=== PATIENT | female | born 1965 | race Caucasian/White ===

== ENCOUNTER 2017-08-13 06:53 | Outpatient (CLI) | payer BC ==
--- NOTE | 2017-08-13 13:37 | BD ---
DEXA BONE DENSITY STUDY: HISTORY: Postmenopausal. COMPARISON: None. FINDINGS: Lumbar Spine: BMD (g/cm2) L1 0.804 T-Score: -1.7 L2 0.826 T-Score: -1.8 L3 0.810 T-Score: -2.5 L4 1.110 T-Score: +0.5 L1-L4 0.899 T-Score: -1.3 Femoral Neck: 0.646 T-Score: -1.8 Total Femur: 0.738 T-Score: -1.7 Impression: 1. Osteopenia of the lumbar spine and left femoral neck. 2. Ten-year fracture risk of major osteoporotic fracture is 4.9% and of hip fracture 0.6%. These fr acture probabilities were calculated for an untreated patient. POS: JODY
--- NOTE | 2017-08-13 13:40 | MMO ---
SCREENING MAMMOGRAPHY: DATE: 08/13/17. COMPARISON: 07/02/16, 05/23/15, and 05/12/14. HISTORY: Screening mammography. FINDINGS: The patient's mammogram is interpreted with the assistance of computer-aided detection. Benign calcification noted bilaterally. Scattered fibroglandular densities noted. No dominant mass lesion or architectural distortion. No concerning calcification. IMPRESSION: BI-RADS 2 - benign findings. Annual screening mammography advised. POS: JODY
== END 2017-08-13 06:54 | disposition home or self-care (01) ==
LOC: MAMMO 06:53
PROVIDERS: ATTEND Family Medicine
DX: Z12.31 Encounter for screening mammogram for malignant neoplasm of breast (principal); N95.9 Unspecified menopausal and perimenopausal disorder; M85.88 Other specified disorders of bone density and structure, other site; M85.852 Other specified disorders of bone density and structure, left thigh
CPT/HCPCS: 77067; 77080; G0202

== ENCOUNTER 2018-09-15 11:13 | Outpatient (CLI) | payer OTHER ==
--- NOTE | 2018-09-15 13:08 | MMO ---
BILATERAL DIGITAL SCREENING MAMMOGRAMS: History: 53-year-old female presents for digital screening mammography. Comparison: 08-13-17, 07-02-16, 05-23-15, 05-12-14 This study is interpreted with the assistance of computer aided detection. FINDINGS: The breasts are heterogeneously dense which can obscure small masses. There are bilateral typically b enign calcifications, greater on the right side. There are multiple stable areas of parenchymal densi ty asymmetry in both breasts. IMPRESSION: BIRADS category 2 - benign findings. Continue routine screening. POS: JODY
== END 2018-09-15 11:14 | disposition home or self-care (01) ==
LOC: SCSMAMMO 11:13
PROVIDERS: ATTEND Family Medicine
DX: Z12.31 Encounter for screening mammogram for malignant neoplasm of breast (principal)
CPT/HCPCS: 77067